=== PATIENT | female | born 1965 | race Caucasian/White ===

== ENCOUNTER 2019-08-24 10:13 | Emergency (ER) | payer OTHER ==
[~2019-08-24] VITALS: Ht 162.6 cm; Wt 77.3 kg
[2019-08-24 10:16] VITALS: Ht 162.6 cm; Wt 77.3 kg
[2019-08-24] MEDS ORDERED: SUMATRIPTAN SUC25 MG PO (13:43)
[2019-08-24 13:57] VITALS: BP 118/61
== END 2019-08-24 14:04 | disposition home or self-care (01) ==
LOC: D.ER 10:13
DX: G44.009 Cluster headache syndrome, unspecified, not intractable (principal)

== ENCOUNTER 2019-09-05 09:00 | Outpatient (CLI) | payer OTHER ==
[2019-08-24 10:16] VITALS: BMI 29.2
[~2019-09-05 09:00] MED LIST: SUMATRIPTAN SUC25 MG PO
== END 2019-09-05 10:00 | disposition home or self-care (01) ==
LOC: D.MAMMO 09:00
PROVIDERS: ATTEND Family Medicine
DX: Z12.31 Encounter for screening mammogram for malignant neoplasm of breast (principal)